=== PATIENT | female | born 1970 | race Caucasian/White ===

== ENCOUNTER 2023-02-20 19:56 | Emergency (ER) | payer MEDICAID ==
[~2023-02-20] VITALS: Ht 170.2 cm; Wt 149.7 kg
[2023-02-20 20:03] VITALS: BP_SYST 133; PULSE 91; RESP 20; TEMP 97.6; O2SAT 96
[2023-02-20] MEDS ORDERED: IBUPROFEN 800 MG TABLET PO ONE (20:30)
[2023-02-20 21:15] LABS: BASOPHILS # (AUTO) 0.1 K/uL (0.0-0.2); BASOPHILS % (AUTO) 0.9 % (0.0-2.0); EOSINOPHILS # (AUTO) 0.1 K/uL (0.0-0.4); EOSINOPHILS % (AUTO) 1.7 % (0.0-4.0); HEMATOCRIT 45.2 % (36-48); HEMOGLOBIN 14.9 g/dL (12.0-16.0); LYMPHOCYTES # (AUTO) 2.6 K/uL (1.0-5.5); MEAN CORPUSCULAR HEMOGLOBIN 31 pg (27-31); MEAN CORPUSCULAR HGB CONC 33 % (32-36); MEAN CORPUSCULAR VOLUME 95 fL (79.0-98.0); MONOCYTES # (AUTO) 0.4 K/uL (0.0-1.0); MONOCYTES % (AUTO) 5.5 % (1.7-9.3); NEUTROPHILS # (AUTO) 4.7 K/uL (1.8-7.7); NEUTROPHILS % (AUTO) 58.9 % (40.0-70.0); PLATELET COUNT (AUTO) 186 K/uL (130-430); RED BLOOD CELL COUNT(AUTO) 4.77 MIL/uL (4.2-6.2); WHITE BLOOD COUNT (AUTO) 7.9 K/uL (4.8-10.8)
[2023-02-20 21:28] LABS: CALCIUM 9.2 mg/dL (8.4-11.0); CREATININE 1.28 mg/dL (0.55-1.30); POTASSIUM 4.2 mmol/L (3.5-5.1)
[2023-02-20 21:32] LABS: ALBUMIN 3.5 g/dL (3.4-4.8); TOTAL BILIRUBIN 0.2 mg/dL (0.0-1.0); TOTAL PROTEIN, SERUM 6.8 g/dL (6.4-8.3)
[2023-02-20 21:36] LABS: HEMOGLOBIN A1C 9.11 % (<5.7)
[2023-02-20] MEDS ORDERED: METF-518 PO (22:27)
[2023-02-20] MEDS ORDERED: [UNRECOGNIZED DRUG - CODE] TP (22:27)
[2023-02-20 22:43] VITALS: BP_SYST 133; PULSE 91; RESP 20; TEMP 97.6; O2SAT 96
== END 2023-02-20 22:45 | disposition home or self-care (01) ==
LOC: SED 19:56
DX: E11.65 Type 2 diabetes mellitus with hyperglycemia (principal); R22.42 Localized swelling, mass and lump, left lower limb; I10 Essential (primary) hypertension; E66.01 Morbid (severe) obesity due to excess calories; Z68.43 Body mass index [BMI] 50.0-59.9, adult; Z91.041 Radiographic dye allergy status; Z79.899 Other long term (current) drug therapy
CPT/HCPCS: 36415; 80053; 82962; 83037; 83880; 85025; 93971; 99284